=== PATIENT | male | born 1945 | race Caucasian/White ===

== ENCOUNTER 2021-07-21 15:58 | Inpatient (IN) | payer MEDICARE ==
[~2021-07-21] VITALS: Ht 190.5 cm; Wt 84.1 kg
[2021-07-21 19:55] LABS: BASOPHILS % (AUTO) 0.2 % (0-1); EOSINOPHILS % (AUTO) 0.1 % (0-6); MEAN CORPUSCULAR HEMOGLOBIN 31.3 PG (27.0-31.0); MONOCYTES # (AUTO) 1.6 X10'3 (0-0.9); RED BLOOD COUNT 6.18 X10'6 (4.70-6.10)
[2021-07-21 19:56] LABS: BASOPHILS # (AUTO) 0.1 X10'3 (0-0.2); HEMATOCRIT 57.9 % (42.0-52.0); LYMPHOCYTES # (AUTO) 0.8 X10'3 (1.1-4.8); LYMPHOCYTES % (AUTO) 3.7 % (21-51); MEAN CORPUSCULAR HGB CONC 33.4 g/dL (33.0-36.5); MEAN CORPUSCULAR VOLUME 93.7 FL (78-98); MEAN PLATELET VOLUME 8.3 FL (7.4-10.4); MONOCYTES % (AUTO) 7.9 % (2-12); NEUTROPHILS # (AUTO) 18.2 X10'3 (1.8-7.7); NEUTROPHILS % (AUTO) 88.1 % (42-75); PLATELET COUNT 236 X10'3 (140-440); RED CELL DISTRIBUTION WIDTH 14.2 % (11.5-14.5); WHITE BLOOD COUNT 20.7 X10'3 (4.5-11.0)
[2021-07-21 20:05] LABS: ALANINE AMINOTRANSFERASE 18 U/L (12-78); ALBUMIN 2.8 G/DL (3.4-5.0); ALBUMIN/GLOBULIN RATIO 0.7 (1.1-1.5); ALKALINE PHOSPHATASE 85 IU/L (46-116); ANION GAP 12 (8-16); ASPARTATE AMINO TRANSFERASE 17 U/L (10-37); BILIRUBIN,TOTAL 1.3 MG/DL (0.1-1.0); BLOOD UREA NITROGEN 56 MG/DL (7-18); BUN/CREATININE RATIO 42.7 (5.4-32.0); CALCIUM 9.8 MG/DL (8.5-10.1); CHLORIDE 101 MMOL/L (99-107); CREATININE 1.31 MG/DL (0.60-1.10); ETHANOL < 0.010 GM/DL (0.0-0.010); GLUCOSE 155 MG/DL (70-104); POTASSIUM 4.2 MMOL/L (3.5-5.1); SODIUM 137 MMOL/L (135-145); TOTAL CARBON DIOXIDE 24.3 MMOL/L (24-32); eGFR 53 ML/MIN
[2021-07-21 20:16] LABS: HEMOGLOBIN 19.3 g/dl (14.0-17.9)
--- NOTE | 2021-07-21 20:30 | NUR ---
FOUND PT ATTEMPTING TO CRAWL OUT OF BED, PLACED BACK IN BED, NOTED BEDDING DAMP, FULL BEDDING CHANGED, PT HAS LARGE AMOUNTS OF DRIED STOOL ON HIS LEGS, CLEANED AND PLACED IN GOWN. PT PLACED IN DEPENDS.
--- NOTE | 2021-07-21 21:39 | NUR ---
PT CONTINUES TO ATTEMPT TO CRAWL OUT OF BED, STRAIGHT CATHED FOR URINE SAMPLE.
[2021-07-21] MEDS ORDERED: LISI20TA28 PO (22:13)
[2021-07-21] MEDS ORDERED: METO1TAB12 PO (22:17)
[2021-07-21] MEDS ORDERED: DIFL500T PO (22:17)
--- NOTE | 2021-07-21 22:19 | NUR ---
DAUGHTER, OSVALDO PHAN,
[2021-07-21 22:22] LABS: UA COLLECTION TYPE FOLEY CATH
[2021-07-21] MEDS ORDERED: normal saline 1000ml 1,000 ML IV ONE (22:25)
[2021-07-21 22:28] LABS: WBC,URINE TNTC /HPF (0-4)
[2021-07-21 22:29] LABS: BACTERIA,URINE 3+ /HPF (Neg); SQUAMOUS EPITHELIAL CELL,UR NONE SEEN /LPF (FEW)
[2021-07-21] MEDS ORDERED: CefTRIAXone/D5W-Rocephin 1gm 50 ML IV ONE (22:35)
[2021-07-22] MEDS ORDERED: magnesium hydroxide 30ml (MOM) UD suspension PO PRN (00:05)
[2021-07-22] MEDS ORDERED: mag hydrox/Alum hydrox/simeth 30ml oral suspension PO PRN (00:05)
[2021-07-22] MEDS ORDERED: potassium Cl 20 mEq SR tablet PO PRN ×2 (00:05)
[2021-07-22] MEDS ORDERED: thiamine 100mg/ml 2ml inj. IM ONE (00:05)
[2021-07-22] MEDS ORDERED: ondansetron/PF 4mg/2ml inj IV PRN (00:05)
[2021-07-22] MEDS ORDERED: acetaminophen 325mg tablet PO PRN (00:05)
[2021-07-22] MEDS ORDERED: potassium Cl 40MEQ/1/2NS 520ml 520 ML IV PRN ×2 (00:05)
[2021-07-22] MEDS: normal saline 1000ml 1,000 ML IV SCH ×4 (02:07→18:45)
--- NOTE | 2021-07-22 02:50 | NUR ---
PT RESTING, APPEARS TO BE SLEEPING, EVEN UNLABORED RESPIRATIONS. CLEANED UP PT BRIEF THAT WAS SOILED WITH URINE. PT NOW COMFORTABLE AND GIVEN FRESH BEDDING, GOWN AND WARM BLANKETS
[2021-07-22] MEDS: K and/or MAG REPLACEMENT MC SCH ×2 (08:00→19:45)
[2021-07-22] MEDS: docusate sod 100mg capsule PO SCH ×2 (08:00→19:51)
--- NOTE | 2021-07-22 08:07 | NUR ---
Tried to call Dagmar and get report she is on the phone will call back
[2021-07-22] MEDS ORDERED: thiamine inj. 100 MG in normal saline 100ml IV soln 100 ML IV ONE (08:25)
[2021-07-22] MEDS ORDERED: haloperidol lactate 5mg/ml inj IM PRN (08:25)
[2021-07-22] MEDS ORDERED: haloperidol 5mg tablet PO PRN (08:25)
[2021-07-22] MEDS ORDERED: LORazepam 2 mg/ml vial IV PRN (08:25)
--- NOTE | 2021-07-22 08:30 | NUR ---
Patient in room ED 4. I have received report from Dagmar SANDRA and had the opportunity to ask questions will assume patient care when patient comes to the floor.
[2021-07-22 09:03] LABS: BASOPHILS % (AUTO) 0.3 % (0-1); EOSINOPHILS % (AUTO) 0.3 % (0-6); HEMATOCRIT 50.6 % (42.0-52.0); HEMOGLOBIN 17.2 g/dl (14.0-17.9); LYMPHOCYTES # (AUTO) 0.6 X10'3 (1.1-4.8); LYMPHOCYTES % (AUTO) 4.8 % (21-51); MEAN CORPUSCULAR HEMOGLOBIN 31.3 PG (27.0-31.0); MEAN PLATELET VOLUME 7.8 FL (7.4-10.4); MONOCYTES % (AUTO) 7.9 % (2-12); NEUTROPHILS # (AUTO) 10.6 X10'3 (1.8-7.7); NEUTROPHILS % (AUTO) 86.7 % (42-75); PLATELET COUNT 178 X10'3 (140-440); RED CELL DISTRIBUTION WIDTH 14.1 % (11.5-14.5); WHITE BLOOD COUNT 12.3 X10'3 (4.5-11.0)
[2021-07-22 09:15] LABS: ALANINE AMINOTRANSFERASE 17 U/L (12-78); ALBUMIN 2.3 G/DL (3.4-5.0); ALBUMIN/GLOBULIN RATIO 0.6 (1.1-1.5); ALKALINE PHOSPHATASE 70 IU/L (46-116); ANION GAP 8 (8-16); ASPARTATE AMINO TRANSFERASE 19 U/L (10-37); BLOOD UREA NITROGEN 39 MG/DL (7-18); BUN/CREATININE RATIO 48.1 (5.4-32.0); CALCIUM 8.9 MG/DL (8.5-10.1); CHLORIDE 107 MMOL/L (99-107); CREATININE 0.81 MG/DL (0.60-1.10); GLUCOSE 98 MG/DL (70-104); POTASSIUM 3.4 MMOL/L (3.5-5.1); SODIUM 143 MMOL/L (135-145); TOTAL CARBON DIOXIDE 27.7 MMOL/L (24-32); TOTAL PROTEIN 6.3 G/DL (6.4-8.2); eGFR > 90 ML/MIN
[2021-07-22 12:00] VITALS: BP 113/76
[2021-07-22] MEDS: folic acid 1mg/0.2ml inj IV SCH (12:07)
[2021-07-22] MEDS: heparin, porcine 5000 units/ml vial SQ SCH ×2 (12:07→19:52)
[2021-07-22] MEDS: multivitamins, therapeutics tablet PO SCH (12:08)
--- NOTE | 2021-07-22 12:54 | NUR ---
No new labs today MD aware.
--- NOTE | 2021-07-22 13:00 | NUR ---
Called daughter Marbella Perez [phone] back and updated her on patients status. Per Marbella he takes care of his who has dementia.
[2021-07-22] MEDS: CefTRIAXone/D5W-Rocephin 1gm 50 ML IV SCH (13:30)
[2021-07-22 18:00] VITALS: BP 105/63
[2021-07-22 18:48] LABS: COLOR,URINE YELLOW (Yellow)
[2021-07-22 18:49] LABS: CLARITY,URINE SLIGHTLY CLOUDY (Clear)
[2021-07-22 18:52] LABS: GLUCOSE, URINE NEGATIVE (Neg); PROTEIN,URINE NEGATIVE (Neg)
[2021-07-22 18:53] LABS: KETONES,URINE TRACE mg/dl (Neg)
[2021-07-22 18:54] LABS: NITRITES, URINE POSITIVE (Neg); OCCULT BLOOD,URINE TRACE-LYSED (Neg)
[2021-07-22 18:55] LABS: UROBILINOGEN,URINE 0.2 E.U/dL (0.2-1.0)
[2021-07-22 18:56] LABS: LEUKOCYTE ESTERASE ,URINE TRACE (Neg)
--- NOTE | 2021-07-22 19:00 | NUR ---
Problems reprioritized. Patient report given, questions answered & plan of care reviewed with Skyla SANDRA.
--- NOTE | 2021-07-22 19:36 | NUR ---
Patient in room [facility]. I have received report from Chanda SANDRA and had the opportunity to ask questions and assume patient care.
[2021-07-23] VITALS: BP 123/69
[2021-07-23] MEDS: normal saline 1000ml 1,000 ML IV SCH (02:45)
--- NOTE | 2021-07-23 06:29 | NUR ---
Problems reprioritized. Patient report given, questions answered & plan of care reviewed with Chanda SANDRA.
[2021-07-23 06:51] LABS: ALANINE AMINOTRANSFERASE 18 U/L (12-78); ALBUMIN 2.1 G/DL (3.4-5.0); ALBUMIN/GLOBULIN RATIO 0.7 (1.1-1.5); ALKALINE PHOSPHATASE 59 IU/L (46-116); ANION GAP 12 (8-16); ASPARTATE AMINO TRANSFERASE 18 U/L (10-37); BILIRUBIN,TOTAL 0.7 MG/DL (0.1-1.0); BLOOD UREA NITROGEN 25 MG/DL (7-18); BUN/CREATININE RATIO 36.2 (5.4-32.0); CALCIUM 8.4 MG/DL (8.5-10.1); CHLORIDE 111 MMOL/L (99-107); CREATININE 0.69 MG/DL (0.60-1.10); GLUCOSE 73 MG/DL (70-104); LIPASE 327 U/L (73-393); PHOSPHORUS 2.6 MG/DL (2.3-4.5); POTASSIUM 3.9 MMOL/L (3.5-5.1); SODIUM 148 MMOL/L (135-145); TOTAL CARBON DIOXIDE 24.8 MMOL/L (24-32); TOTAL PROTEIN 5.3 G/DL (6.4-8.2); eGFR > 90 ML/MIN
[2021-07-23 07:00] VITALS: BP 120/76
--- NOTE | 2021-07-23 07:10 | NUR ---
Patient in room [facility]. I have received report from Skyla SANDRA and had the opportunity to ask questions and assume patient care.
[2021-07-23] MEDS: K and/or MAG REPLACEMENT MC SCH ×2 (08:00→19:03)
[2021-07-23] MEDS ORDERED: folic acid inj. 2 MG, thiamine inj. 100 MG, MVI, adult No.4 with vit. K 10 ML in dextro... IV SCH ×4 (08:00)
--- NOTE | 2021-07-23 08:17 | NUR ---
PAGER ID: [phone] MESSAGE: Carmen [id number] SYLVIE Velasco [id number] Blood sugar is 65, can the patient eat, hypoglycemia protocol,change IV fluid
[2021-07-23] MEDS: CefTRIAXone/D5W-Rocephin 1gm 50 ML IV SCH (08:19)
[2021-07-23] MEDS: folic acid 1mg/0.2ml inj IV SCH (08:19)
[2021-07-23] MEDS: heparin, porcine 5000 units/ml vial SQ SCH ×2 (08:28→19:31)
[2021-07-23] MEDS: multivitamins, therapeutics tablet PO SCH (08:28)
[2021-07-23] MEDS: docusate sod 100mg capsule PO SCH ×2 (08:29→19:31)
--- NOTE | 2021-07-23 08:45 | NUR ---
Blood sugar was 65mg/dl, patient given 1 cup of orange juice. sugar rechecked at 8:15am to be 67m/dl. Dr. Monsalve notified. hypoglycemia protocol initiated and dextrose 5% telephone order was given by . Dex 4 given, blood sugar rechecked at 8:45am to be 95mg/dl.
[2021-07-23] MEDS ORDERED: dextrose ORAL solution 15 GM/59 ML bottle PO PRN ×2 (09:00)
[2021-07-23] MEDS ORDERED: glucagon, human recombinant 1mg kit SUBCUT PRN (09:00)
[2021-07-23] MEDS ORDERED: dextrose 50%-water 50ml dispensing syringe IV PRN ×2 (09:00)
[2021-07-23 09:10] LABS: BASOPHILS % (AUTO) 0.6 % (0-1); EOSINOPHILS # (AUTO) 0.1 X10'3 (0-0.9); EOSINOPHILS % (AUTO) 0.8 % (0-6); HEMATOCRIT 48.6 % (42.0-52.0); HEMOGLOBIN 16.1 g/dl (14.0-17.9); LYMPHOCYTES # (AUTO) 0.6 X10'3 (1.1-4.8); LYMPHOCYTES % (AUTO) 8.9 % (21-51); MEAN CORPUSCULAR HEMOGLOBIN 31.5 PG (27.0-31.0); MEAN CORPUSCULAR HGB CONC 33.2 g/dL (33.0-36.5); MEAN CORPUSCULAR VOLUME 94.8 FL (78-98); MEAN PLATELET VOLUME 8.1 FL (7.4-10.4); MONOCYTES # (AUTO) 0.8 X10'3 (0-0.9); MONOCYTES % (AUTO) 11.1 % (2-12); NEUTROPHILS # (AUTO) 5.4 X10'3 (1.8-7.7); NEUTROPHILS % (AUTO) 78.6 % (42-75); PLATELET COUNT 145 X10'3 (140-440); RED BLOOD COUNT 5.12 X10'6 (4.70-6.10); RED CELL DISTRIBUTION WIDTH 14.3 % (11.5-14.5); WHITE BLOOD COUNT 6.9 X10'3 (4.5-11.0)
[2021-07-23] MEDS: dextrose 5%-water 1,000 ML IV SCH (09:16)
--- NOTE | 2021-07-23 09:37 | NUR ---
Initial: Pt admit for UTI and metabolic encephalopathy secondary to sepsis and alcoholism per physician note. Pt currently receiving routine Folic acid and MVI for EtOH. Noted pt with a low Zacarias of 12, per physical assessment pt with no edema and reddened sacrum and buttocks with an area of excoriation. Patient initially NPO however has just been advanced to clear liquids, pending first meal since diet advancement. LBM 07/22. No nutrition intervention implemented at this time. Will continue to follow closely and make recommendations as appropriate. Recommendations: 1) Advance to regular diet as medically indicated 2) Monitor need for ONS 3) Continue routine Folic acid and MVI for Etoh hx 4) Routine bowel care 5) Scaled weight this admit; weekly scaled weights thereafter Addendum: 07/23/21 at [address] Amended: Links added.
[2021-07-23 11:00] VITALS: BP 106/66
[2021-07-23 18:00] VITALS: BP 127/80
--- NOTE | 2021-07-23 18:57 | NUR ---
Problems reprioritized. Patient report given, questions answered & plan of care reviewed with Alan SANDRA.
--- NOTE | 2021-07-23 22:58 | NUR ---
could be irregular or a murmur but it wasn't a clear sound. Addendum: 07/23/21 at 2304 by Delta Zapata RN Amended: Links added.
[2021-07-24] VITALS: BP 129/77
[2021-07-24] MEDS: dextrose 5%-water 1,000 ML IV SCH (04:40)
[2021-07-24 06:36] LABS: BASOPHILS % (AUTO) 0.8 % (0-1); EOSINOPHILS # (AUTO) 0.1 X10'3 (0-0.9); EOSINOPHILS % (AUTO) 1.9 % (0-6); HEMATOCRIT 47.1 % (42.0-52.0); HEMOGLOBIN 16.2 g/dl (14.0-17.9); LYMPHOCYTES # (AUTO) 0.7 X10'3 (1.1-4.8); LYMPHOCYTES % (AUTO) 10.2 % (21-51); MEAN CORPUSCULAR HEMOGLOBIN 32.2 PG (27.0-31.0); MEAN CORPUSCULAR HGB CONC 34.4 g/dL (33.0-36.5); MEAN CORPUSCULAR VOLUME 93.4 FL (78-98); MONOCYTES # (AUTO) 0.7 X10'3 (0-0.9); MONOCYTES % (AUTO) 10.2 % (2-12); NEUTROPHILS % (AUTO) 76.9 % (42-75); PLATELET COUNT 161 X10'3 (140-440); RED BLOOD COUNT 5.05 X10'6 (4.70-6.10); RED CELL DISTRIBUTION WIDTH 13.9 % (11.5-14.5); WHITE BLOOD COUNT 6.4 X10'3 (4.5-11.0)
--- NOTE | 2021-07-24 06:43 | NUR ---
Problems reprioritized. Patient report given, questions answered & plan of care reviewed with Carmen SANDRA.
[2021-07-24 06:45] LABS: ALANINE AMINOTRANSFERASE 16 U/L (12-78); ALBUMIN 2.2 G/DL (3.4-5.0); ALBUMIN/GLOBULIN RATIO 0.7 (1.1-1.5); ALKALINE PHOSPHATASE 66 IU/L (46-116); ANION GAP 5 (8-16); ASPARTATE AMINO TRANSFERASE 18 U/L (10-37); BILIRUBIN,TOTAL 0.9 MG/DL (0.1-1.0); BLOOD UREA NITROGEN 11 MG/DL (7-18); BUN/CREATININE RATIO 16.7 (5.4-32.0); CALCIUM 8.6 MG/DL (8.5-10.1); CHLORIDE 106 MMOL/L (99-107); CREATININE 0.66 MG/DL (0.60-1.10); GLUCOSE 100 MG/DL (70-104); LIPASE 358 U/L (73-393); PHOSPHORUS 1.9 MG/DL (2.3-4.5); POTASSIUM 3.3 MMOL/L (3.5-5.1); SODIUM 141 MMOL/L (135-145); TOTAL CARBON DIOXIDE 30.2 MMOL/L (24-32); TOTAL PROTEIN 5.4 G/DL (6.4-8.2); eGFR > 90 ML/MIN
[2021-07-24] MEDS: K and/or MAG REPLACEMENT MC SCH ×2 (08:00→20:00)
[2021-07-24] MEDS ORDERED: LORazepam 1 MG tablet PO PRN (08:25)
[2021-07-24] MEDS ORDERED: LORazepam 2 mg/ml vial IV PRN (08:25)
[2021-07-24] MEDS: folic acid 1mg/0.2ml inj IV SCH (09:08)
[2021-07-24] MEDS: docusate sod 100mg capsule PO SCH ×2 (09:09→19:32)
[2021-07-24] MEDS: multivitamins, therapeutics tablet PO SCH (09:10)
[2021-07-24] MEDS: CefTRIAXone/D5W-Rocephin 1gm 50 ML IV SCH (09:10)
[2021-07-24] MEDS: heparin, porcine 5000 units/ml vial SQ SCH ×2 (09:10→19:31)
[2021-07-24 12:00] VITALS: BP 119/58
[2021-07-24 18:00] VITALS: BP 142/83
[2021-07-24] MEDS: lactobacillus rhamnosus 10,000 MMU CELLS/CAPSULE PO SCH (19:32)
--- NOTE | 2021-07-24 20:39 | NUR ---
Per report Carmen beaver RN said she spoke to doctor about K+ 3.3 and doctor said it was ok, I will non admit the 0800 under see note
[2021-07-25] VITALS: BP 133/90
[2021-07-25] MEDS: dextrose 5%-water 1,000 ML IV SCH (01:12)
[2021-07-25 06:48] LABS: BASOPHILS % (AUTO) 0.5 % (0-1); EOSINOPHILS # (AUTO) 0.1 X10'3 (0-0.9); EOSINOPHILS % (AUTO) 1.7 % (0-6); HEMATOCRIT 49.7 % (42.0-52.0); LYMPHOCYTES # (AUTO) 0.7 X10'3 (1.1-4.8); LYMPHOCYTES % (AUTO) 8.5 % (21-51); MEAN CORPUSCULAR HEMOGLOBIN 31.9 PG (27.0-31.0); MEAN CORPUSCULAR HGB CONC 34.1 g/dL (33.0-36.5); MEAN CORPUSCULAR VOLUME 93.4 FL (78-98); MEAN PLATELET VOLUME 7.5 FL (7.4-10.4); MONOCYTES # (AUTO) 0.6 X10'3 (0-0.9); MONOCYTES % (AUTO) 7.8 % (2-12); NEUTROPHILS # (AUTO) 6.5 X10'3 (1.8-7.7); NEUTROPHILS % (AUTO) 81.5 % (42-75); PLATELET COUNT 169 X10'3 (140-440); RED BLOOD COUNT 5.32 X10'6 (4.70-6.10); RED CELL DISTRIBUTION WIDTH 13.6 % (11.5-14.5)
--- NOTE | 2021-07-25 06:57 | NUR ---
Patient in room [facility]. I have received report from kera SANDRA and had the opportunity to ask questions and assume patient care.
[2021-07-25 07:12] LABS: ALANINE AMINOTRANSFERASE 21 U/L (12-78); ALBUMIN 2.4 G/DL (3.4-5.0); ALBUMIN/GLOBULIN RATIO 0.7 (1.1-1.5); ALKALINE PHOSPHATASE 75 IU/L (46-116); ANION GAP 5 (8-16); ASPARTATE AMINO TRANSFERASE 23 U/L (10-37); BLOOD UREA NITROGEN 5 MG/DL (7-18); BUN/CREATININE RATIO 9.3 (5.4-32.0); CALCIUM 9.2 MG/DL (8.5-10.1); CHLORIDE 102 MMOL/L (99-107); CREATININE 0.54 MG/DL (0.60-1.10); GLUCOSE 112 MG/DL (70-104); LIPASE 285 U/L (73-393); POTASSIUM 3.4 MMOL/L (3.5-5.1); SODIUM 139 MMOL/L (135-145); TOTAL CARBON DIOXIDE 31.8 MMOL/L (24-32); TOTAL PROTEIN 5.9 G/DL (6.4-8.2); eGFR > 90 ML/MIN
[2021-07-25 08:00] VITALS: BP 153/96
[2021-07-25] MEDS: K and/or MAG REPLACEMENT MC SCH (08:00)
[2021-07-25] MEDS ORDERED: folic acid 1mg tablet PO SCH (08:36)
[2021-07-25] MEDS: multivitamins, therapeutics tablet PO SCH (08:37)
[2021-07-25] MEDS: lactobacillus rhamnosus 10,000 MMU CELLS/CAPSULE PO SCH (08:37)
[2021-07-25] MEDS: docusate sod 100mg capsule PO SCH (08:37)
[2021-07-25] MEDS: CefTRIAXone/D5W-Rocephin 1gm 50 ML IV SCH (08:38)
[2021-07-25] MEDS: heparin, porcine 5000 units/ml vial SQ SCH (08:38)
--- NOTE | 2021-07-25 10:52 | NUR ---
Malnutrition consult: Pt reports 2-13 lb wt loss with decreased appetite per malnutrition risk screen with RN. Per physical assessment pt A/O x 2 and confused. Current documented wt isn't scaled and no wt hx in EMR. Per ED report pt appears well developed well nourished. Pt with average 50% PO intake on clear liquid diet though up to 100% PO intake at most recent documented meal. Pt with no documented significant decrease in muscle strength or edema. Pt currently lacks a minimum of two criteria for malnutrition. Pt seen by wound care, per report pt with intact DTI to coccyx, DTI to bilat ischium with some partial thickness openings with no signs of infection, DTI to bilat heels, and DTI to bilat elbows with no open areas or signs of infection. No nutrition intervention implemented at this time given current diet order. Pt continues receiving D5 at 50 mL/hr providing 204 kcal/day. LBM 07/24, receiving routine bowel care. Will continue to follow closely and make recommendations as appropriate. Recommendations: 1) Advance to regular diet as medically indicated 2) Monitor need for ONS 3) Continue routine Folic acid and MVI for Etoh hx 4) Routine bowel care 5) Scaled weight this admit; weekly scaled weights thereafter Addendum: 07/25/21 at [address] Amended: Links added.
[2021-07-25] MEDS ORDERED: SULF1TAB49 PO (12:03)
--- NOTE | 2021-07-25 15:50 | NUR ---
Patient seen by sameera Jewell to discharge home. Discharge instructions given to patient. IV taken out and cannula intact. Patients daughter jhonathan picked him up in private vehicle. all belongings were with patient. patient in stable condition.
[2021-07-26] MEDS ORDERED: LORazepam 2 mg/ml vial IV PRN (08:25)
[2021-07-26] MEDS ORDERED: LORazepam 1 MG tablet PO PRN (08:25)
== END 2021-07-25 15:55 | disposition home health service (06) | DRG 871 ==
LOC: ER 15:58 → ED HOLD 07-22 00:05 → SUR 3N 07-22 09:00
PROVIDERS: ADMIT Internal Medicine; ATTEND Family Medicine
DX: A41.9 Sepsis, unspecified organism (principal); G92 Toxic encephalopathy; N39.0 Urinary tract infection, site not specified; N17.9 Acute kidney failure, unspecified; E87.6 Hypokalemia; B96.20 Unspecified Escherichia coli [E. coli] as the cause of diseases classified elsewhere; E86.0 Dehydration; I10 Essential (primary) hypertension; I48.91 Unspecified atrial fibrillation; F10.20 Alcohol dependence, uncomplicated; R15.9 Full incontinence of feces; Z79.899 Other long term (current) drug therapy
CPT/HCPCS: 36415; 70450; 71045; 72125; 80053; 80320; 81001; 82948; 83605; 83690; 84100; 84145; 85025; 85610; 87040; 87077; 87088; 87186; 93005; 96360; 96361; 97116; 97161; 97530; 99285; G0378; J0696; J1644; J3411; J3490; J7030; J7070